=== PATIENT | male | born 1985 | race African-American/Black ===

== ENCOUNTER 2019-03-16 19:20 | Emergency (ER) | payer OTHER ==
[~2019-03-16] VITALS: Ht 175.3 cm
[2019-03-16] MEDS: Albuterol ud Inhalation HHN SCH ×3 (19:57→20:27)
[2019-03-16] MEDS: Ipratropium 0.02% Inh Soln 2.5ml UD HHN SCH ×3 (19:57→20:27)
[2019-03-16 20:00] VITALS: BP 122/62
[2019-03-16] MEDS ORDERED: ALBUTEROL SULF8.5 GM INH (20:22)
[2019-03-16] MEDS ORDERED: PREDNISONE50 MG ORAL (20:22)
--- NOTE | 2019-03-16 20:23 | Emergency Room Report ---
History of Present Illness General Chief Complaint: Upper Respiratory Illness Source: Patient Present Illness HPI 33-year-old male presents with acute shortness of breath, has been ongoing for about 4 days to a week, patient states he smokes a lot, which aggravates it, he endorses a dry cough, alleviating factors appear to be albuterol severity is moderate, constant, no chest pain no nausea no vomiting no fevers no chills, patient had an x-ray 4 days ago which was negative at [facility], patient presents for evaluation. Allergies: Coded Allergies: PENICILLINS (Verified Allergy, Unknown, 03/16/19) Patient History Past Medical History: see triage record Social History: Reports: smoking Reviewed Nursing Documentation: PMH: Agreed; PSxH: Agreed Nursing Documentation-PMH Hx Asthma: Yes Review of Systems All Other Systems: negative except mentioned in HPI Physical Exam Vital Signs Date Time Temp Pulse Resp B/P (MAP) Pulse Ox O2 Delivery O2 Flow Rate FiO2 03/16/19 19:26 97.9 84 16 122/62 (82) 96 Room Air 03/16/19 19:57 21 Sp02 EP Interpretation: reviewed, normal General Appearance: well appearing, no apparent distress, alert Head: normocephalic, atraumatic Eyes: bilateral eye PERRL, bilateral eye EOMI ENT: uvula midline, moist mucus membranes Neck: supple, thyroid normal, supple/symm/no masses Respiratory: decreased breath sounds, rhonchi, speaking full sentences Cardiovascular #1: normal peripheral pulses, regular rate, rhythm, no edema, no gallop, no murmur Gastrointestinal: non tender, soft, no guarding, no rebound Musculoskeletal: normal inspection Neurologic: alert, oriented x3 Psychiatric: mood/affect normal Skin: no rash, warm/dry Medical Decision Making Diagnostic Impression: Primary Impression: COPD exacerbation ER Course 33-year-old male presents with acute shortness of breath most likely a COPD versus asthma exacerbation, duo nebs given, with significant improvement, steroids given, will provide patient with a prednisone burst, counseled patient to stop smoking Disposition home with return precautions patient improved significantly with DuoNeb treatment Last Vital Signs Date Time Temp Pulse Resp B/P (MAP) Pulse Ox O2 Delivery O2 Flow Rate FiO2 03/16/19 20:13 83 20 99 Room Air 21 03/16/19 20:00 97.9 122/62 Disposition: HOME, SELF-CARE Condition: Stable Scripts Prednisone* (PREDNISONE*) 50 Mg Tablet 50 MG ORAL DAILY, #4 TAB 0 Refills Prov: Jerson Artis MD 03/16/19 Albuterol Sulfate* (ALBUTEROL SULFATE MDI*) 8.5 Gm Hfa.aer.ad 2 PUFF INH Q4H PRN for cough/wheezing, #2 EA 0 Refills Prov: Jerson Artis MD 03/16/19 Referrals: TIMOTHY CARABALLO,REFERRING (PCP) [facility]. [facility] Patient Instructions: Chronic Obstructive Pulmonary Disease Exacerbation, Easy- to-Read Additional Instructions: The patient was provided with discharge instructions, notified to follow-up with a primary care doctor and or specialist in the next 24-48 hours, and to return to the ED if they have worsening of their symptoms. Please note that this report is being documented using DRAGON technology. This can lead to erroneous entry secondary to incorrect interpretation by the dictating instrument. Jerson Artis MD Mar 16, 2019 20:23
[2019-03-16 20:45] VITALS: BP 122/62
== END 2019-03-16 20:45 | disposition home or self-care (01) ==
LOC: EMR 19:56
DX: J44.1 Chronic obstructive pulmonary disease with (acute) exacerbation (principal); J45.909 Unspecified asthma, uncomplicated; Z88.0 Allergy status to penicillin; F17.200 Nicotine dependence, unspecified, uncomplicated
CPT/HCPCS: J8540; Z7502; 99283